=== PATIENT | female | born 1945 | race Two or more races ===

== ENCOUNTER 2016-11-11 22:13 | Emergency (ER) | payer MEDICARE ==
[~2016-11-11] VITALS: Ht 152.4 cm; Wt 54.4 kg
[~2016-11-11 22:13] MED LIST: ATARAX PO; BENADRILINA25 MG PO; HYDROXYZINE HCL25 M1 PO; KEFLEX500 MG PO; LEVOTHYROXINE50 MCG PO; LIPITOR20 MG PO; PEPCID AC20 MG PO; PREDNISONE10 MG PO; PREVACID30 MG/BOTT PO; VITAL-D RX TABL1 TAB PO
[2016-11-11 23:58] LABS: BASOPHIL% 0.3 % (0-2.5); EOSINOPHIL# 0.1 X10e3 (0-0.7); EOSINOPHIL% 2.1 % (0.0-7.0); HEMATOCRIT 40.3 % (35.0-45.0); HEMOGLOBIN 13.8 gm/dL (12.0-16.0); LYMPHOCYTE# 0.8 X10e3 (1.0-3.5); LYMPHOCYTE% 15.4 % (17.0-45.0); MEAN CELL VOLUME 95.2 FL (83-96); MEAN CORPUSCULAR HEMOGLOBIN 32.6 PG (28-34); MEAN CORPUSCULAR HGB CONC 34.3 g/dL (30-36); MEAN PLATELET VOLUME 7.8 FL (6.5-11.5); MONOCYTE# 0.5 X10e3 (0-1.0); MONOCYTE% 9.5 % (3.0-12.0); NEUTROPHIL# 3.7 X10e3 (1.5-7.1); NEUTROPHIL% 72.7 % (40-75); PLATELET COUNT 108 X10e3 (140-420); RED BLOOD COUNT 4.24 X10e (3.90-5.30); RED CELL DISTRIBUTION WIDTH 13.7 % (11.0-15.5); WHITE BLOOD COUNT 5.1 X10e3 (4.0-10.5)
[2016-11-12 00:01] LABS: DIFF IND NO
[2016-11-12 00:18] LABS: ALBUMIN SERUM 4.1 g/dL (3.5-5.0); BILIRUBIN, DIRECT 0.2 mg/dL (0.0-0.2); BILIRUBIN,INDIRECT 0.9 mg/dL (0.0-0.9); BILIRUBIN,TOTAL 1.1 mg/dL (0.2-2.0); CREATININE SERUM 0.6 mg/dL (0.6-1.4); GLOM FILT RATE Estimated 90.4 mL/min (>60); POTASSIUM 3.5 mmol/L (3.5-5.1); PROTEIN TOTAL SERUM 7.7 g/dL (6.0-8.3)
[2016-11-12 00:20] LABS: URINE SOURCE CLEAN CATCH
[2016-11-12 00:34] LABS: URINE APPEARANCE CLEAR; URINE BILIRUBIN NEG (NEG); URINE BLOOD NEG (NEG); URINE COLOR YELLOW; URINE GLUCOSE NEG (NEG); URINE KETONE NEG (NEG); URINE LEUKOCYTE ESTERASE 1+ (NEG); URINE NITRATE NEG (NEG); URINE PROTEIN NEG (NEG); URINE SPECIFIC GRAVITY 1.016 (1.003-1.035); URINE UROBILINOGEN 0.2 MG/DL (NEG)
[2016-11-12 00:37] LABS: CULTURE INDICATED? YES; URINE BACTERIA AUWI NEG (NEGATIVE); URINE SQUAMOUS EPITHELIAL CELL OCC /[HPF]
== END 2016-11-12 02:15 | disposition home or self-care (01) ==
LOC: CED 22:13
PROVIDERS: Emergency Medicine
DX: E03.9 Hypothyroidism, unspecified (principal); R53.83 Other fatigue; R53.1 Weakness; N39.0 Urinary tract infection, site not specified; F41.9 Anxiety disorder, unspecified; Z79.899 Other long term (current) drug therapy
CPT/HCPCS: 36415; 80048; 80076; 81003; 84443; 85025; 87086; 96360; 99284

== ENCOUNTER 2016-11-19 18:16 | Inpatient (IN) | payer MEDICARE ==
[~2016-11-19] VITALS: Ht 154.9 cm; Wt 57.7 kg
--- NOTE | ~2016-11-19 | CT2 ---
[facility] A Service of [facility] RADIOLOGY TEXT RESULTS PATIENT: ADRIA ANDERS LOCATION: [facility] 55- : 43 UNIT #: [id number] AGE: [address]: Lillian Sosa MD SEX: F ORDER DR: [id number] [facility] [address] [place], [place] [address] [id number] I MR#: [id number] Acc #: [id number] NAME: ADRIA ANDERS : 1945 SEX: F STUDY DATE/TIME: 11/19/2016 22:10 UNIT: [facility] ROOM: [facility] STUDY DESCRIPTION: CT Abd and Pelv W Cont Attending Physician: Arias Bhatti M.D. Ordering Physician: Medhat Cardona M.D. Primary Care Physician: Kristian Stephens M.D. MEDICAL IMAGING REPORT This report is preliminary unless electronic signature is present EXAM CT abdomen and pelvis 11/19/2016. HISTORY Pain. Vomiting, fall today, chills, dizzy patient does not want to talk. Fever 100 abdomen pain today. TECHNIQUE This CT exam was performed with one or more of the following radiation dose reduction techniques: automatic control, adjustment of mA and/or kV according to patient size, and iterative reconstruction. FINDINGS CT abdomen and pelvis performed with intravenous administration 100 mL Isovue-370. Enteric contrast not administered. Study limited in the absence of enteric contrast. Prior comparison study is a multiphase contrast-enhanced CT of the abdomen, not including pelvis, dated 03/25/2009. The lung bases show patchy and band-like densities bilateral lung bases probably predominately atelectatic in nature. Components of basilar pneumonia not excluded. On the first image. There is an ill-defined nodular density measuring 1.1 cm in diameter in the right lower lobe. The prior examination images did not include this area. This is nonspecific and could be an area of airspace disease or pulmonary nodule. Consider further assessment with elective CT of chest when clinically appropriate for the patient. An approximately 6 mm nodular density at the left lung base near the diaphragm in the lower lobe is unchanged from 2010 and therefore felt to be benign in nature. There is a bronchial wall thickening at the bilateral lung bases new compared to prior study and probably reflecting some degree of bronchitis. Both acute and chronic components could be present. The heart is upper limits of normal in size. The liver has a somewhat nodular contour suggesting underlying cirrhosis. There is relatively decreased size of the right hepatic lobe. There is a small cyst in segment 4 of the liver which is STS. [facility] A Service of [facility] RADIOLOGY TEXT RESULTS PATIENT: ADRIA ANDERS LOCATION: [place] [address] : 43 UNIT #: [id number] AGE: [address]: Lillian Sosa MD SEX: F ORDER DR: more pronounced than on prior examination. There is no clearly suspicious pulmonary parenchymal abnormality. Status post cholecystectomy. No biliary obstruction. The spleen is borderline enlarged at 13.2 cm in maximum diameter. Pancreas, adrenal glands unremarkable. There is mild bilateral pyelocaliectasis which is unchanged from 2010 and felt to be the normal physiologic state for this patient. No obstructing process is seen. No calculi. No perinephric inflammatory change. CT PELVIS: No inguinal adenopathy. Moderate urinary bladder distension. Bladder measures up to 11.2 cm in craniocaudal extent. Probably physiologic. Correlate with any clinical signs or symptoms of urinary retention. The uterus and adnexal regions are normal in appearance. There may be a minimal trace amount of free fluid in the pelvis. Certainly no drainable fluid collection. There is no pelvic or retroperitoneal adenopathy. The distal esophagus, stomach, small bowel unremarkable. I believe the patient retains normal appendix. Colon unremarkable. The aorta is normal in caliber. Scattered atherosclerotic arterial calcifications. Bony structures show degenerative changes in the spine. There is a left L5 pars interarticularis defect. Minimal grade 1 anterolisthesis L5 on S1. Posterior disc bulge L5-S1. Mild central spinal canal narrowing. Narrowing of the bilateral lateral recesses. Narrowing of the bilateral neural foramina. Posterior disc protrusion L4-L5. Marked central spinal canal narrowing. Marked mass effect on bilateral lateral recesses. Narrowing of the bilateral neural foramina. Less pronounced degenerative changes elsewhere. IMPRESSION 1. Patchy and linear/band-like densities at the bilateral lung bases probably predominately atelectatic in nature. Small areas of pneumonitis could be considered in the appropriate clinical context. On the first image of the examination there is a 1.1 cm ill-defined incompletely visualized nodular density at the inferior right lung. It is unclear if this is volume averaging through a normal vascular structure, an area of airspace disease, or a true pulmonary nodule. Best further evaluated with elective CT of the chest when clinically appropriate for the patient. 2. Stable 6 mm noncalcified pulmonary nodule right lung base unchanged from 2010 and therefore felt to be benign in nature. 3. Stable mild cardiac enlargement. 4. Cirrhotic morphology of liver more pronounced than in 2010. No suspicious hepatic parenchymal finding. 5. Status post cholecystectomy. 6. Borderline splenic enlargement. 7. Stable mild bilateral pyelocaliectasis. No change from 2010. No acute renal findings. 8. Mild bladder distension likely physiologic. Correlate clinically. 9. There may be a minimal trace free fluid in deep pelvis. Certainly there is no drainable fluid collection. This is probably physiologic in nature. [facility] A Service of [facility] RADIOLOGY TEXT RESULTS PATIENT: ADRIA ANDERS LOCATION: [facility] 551- : 43 UNIT #: [id number] AGE: [address]: Lillian Sosa MD SEX: F ORDER DR: 10. No acute-appearing abnormality along the alimentary canal. Patient retains normal appendix. 11. Degenerative changes in the spine. See discussion above. Most pronounced at L4-L5 where there is a prominent posterior disc protrusion resulting in marked spinal canal narrowing and narrowing of the bilateral lateral recesses. Chronicity unclear though I would favor chronic time course. Spinal canal and neural foraminal contents could best be further evaluated if clinically warranted with elective MRI if the patient is a candidate. Dictated by... Cordell Soriano M.D. THIS IS AN ELECTRONICALLY VERIFIED REPORT Cordell Soriano M.D. at 11/22/2016 5:05 PM GEORGE/venus TD: 11/20/2016 21:58 JOB #: [id number] MEDICAL IMAGING REPORT Page 1 of 1 COPY
--- NOTE | ~2016-11-19 | CO ---
Unit #: [id number] #: [id number] Patient: ADRIA ANDERS [id number] [address] [place], [place] [address] [id number] I MR#: [id number] NAME: ADRIA ANDERS ROOM: 220 Age: 71 Sex: F Admission Date: 11/20/2016 : 1945 Attending Physician: Lillian Sosa M.D. Primary Care Physician: Kristian Stephens M.D. Consultation Date: 11/24/2016 CONSULTATION REPORT REASON FOR EVAL Left lobe liver lesion, please evaluate. HISTORY OF PRESENT ILLNESS 71-year-old lady who came with nonspecific cough and dizziness and shortness of breath. Has a long history of hepatitis C cirrhosis and hepatitis C is treated and now CT scan showed a left sided lesion. MRI proved that it was most probably hepatocellular carcinoma. We were requested to evaluate. Today the son, who speaks very good Yi, is in the room with her and when I asked, he states that he was very happy to translate for her and she did not need any translators and that they were not very good at all. PAST HISTORY 1. Hypothyroidism. 2. Hyperlipidemia. 3. Hepatitis C. FAMILY HISTORY Negative for heart disease or liver disease or liver cancers. SOCIAL HISTORY Patient is originally from [place]. Lives with the daughter. She is a nonsmoker, no alcohol usage, retired. Has a very supportive son in the room. ALLERGIES No known allergies. CHRONIC MEDICATIONS 1. Levothyroxine. 2. Meloxicam. 3. Lipitor. 4. Vitamin D. 5. Hydralazine. REVIEW OF SYSTEMS Review of systems was limited but she has no other problems according to the review. Only mild dizziness, periodic cough, abdominal discomfort. Otherwise, review was unremarkable and was limited. PHYSICAL EXAMINATION No jaundice, no palpable nodes. LUNGS: Clear. Unit #: [id number] #: [id number] Patient: ADRIA ANDERS CARDIOVASCULAR: Distant S1, S2. ABDOMEN: Liver is not palpable. There is diffuse tenderness. No rebound, no rigidity. LEAF BLENDER: Grossly intact. PELVIC/BREAST EXAM: Not performed. DIAGNOSTIC STUDIES LABORATORY: Chemistries - glucose 101, BUN 9, creatinine 0.5, sodium 138, potassium 4, chloride 102, CO2 27, calcium 8.9, magnesium 2.1, AST of 60, bilirubin total 0.6, ALT 43, alk. phos. 46. Protime 10.9, INR of 1. Hemoglobin 14, hematocrit 40, white count 3100, platelet 112,000. MCV of 95. IMAGING: MRCP was brought up, reviewed, results discussed. 1) Cirrhosis of the liver; 2) 2.2 cm hypervascular mass lateral segment left hepatic lobe consistent with hepatocellular carcinoma. So, at this point, I had a long discussion with the patient and the son regarding need for biopsy of this lesion and from the MRI that I am reviewing there is no need to biopsy this mass. She has underlying cirrhosis and it is classic hepatocellular carcinoma so at this point I am going to cancel the liver biopsy and schedule the patient to see us in the office from where we will refer her to the liver surgeons for resection of the left lobe of the liver. As her LFTs are reasonable, protime is normal, I think she can easily tolerate left hepatectomy, then followup. In the meantime, AFB has been drawn, result is pending. Dictated by... Yaron Luna M.D. АННА/heike TD: 11/24/2016 13:16 JOB #: [id number] CONSULTATION REPORT Page 1 of 1 X Yaron Luna MD X CONSULTATION REPORT
--- NOTE | ~2016-11-19 | EKG ---
PATIENT: CHAGO ADRIA UNIT #: [id number] Ventricular Rate: 75 BPM Atrial Rate: 75 BPM P-R Interval: 128 ms QRS Duration: 94 ms Q-T Interval: 418 ms QTC Calculation(Bezet): 466 ms P Milton: 24 degrees Calculated R Milton: 39 degrees Calculated T Milton: 48 degrees Diagnosis Line: Normal sinus rhythm Diagnosis Line: Incomplete right bundle branch block Diagnosis Line: Otherwise normal ECG Diagnosis Line: When compared with ECG of 04-MAR-2016 20:08, Diagnosis Line: No significant change was found Diagnosis Line: Confirmed by JOS SAUCEDO MD ([id number]) on 11/21/2016 Diagnosis Line: 11:02:53 PM INTERPRETING MD: SHERYL HOLLAND
--- NOTE | ~2016-11-19 | CR72 ---
[facility] A Service of [facility] RADIOLOGY TEXT RESULTS PATIENT: ADRIA ANDERS LOCATION: [place] [address] : 43 UNIT #: [id number] AGE: [address]: Arias Bhatti MD SEX: F ORDER DR: [id number] [facility] [address] [place], [place] [address] [id number] I MR#: [id number] Acc #: [id number] NAME: ADRIA ANDERS : 1945 SEX: F STUDY DATE/TIME: 11/19/2016 23:38 UNIT: [facility] ROOM: [facility] STUDY DESCRIPTION: CR Chest Single View Portable Attending Physician: Arias Bhatti M.D. Ordering Physician: Medhat Cardona M.D. Primary Care Physician: Kristian Stephens M.D. MEDICAL IMAGING REPORT This report is preliminary unless electronic signature is present EXAM Portable chest, 11/19/2016, at 23:38. INDICATIONS Shortness of air, weakness and cough that worsened today. Symptoms for 1 week. FINDINGS AP portable chest compared with 03/04/2016. Lung volumes are low. Granulomatous calcifications are present. The lungs are otherwise clear. Cardiac and mediastinal contours are normal. There is no pneumothorax. IMPRESSION No active disease. Dictated by... Sachin Houston Jr., M.D. THIS IS AN ELECTRONICALLY VERIFIED REPORT Sachin Houston Jr., M.D. at 11/21/2016 4:14 AM WILL/cheryl TD: 11/20/2016 22:53 JOB #: [id number] MEDICAL IMAGING REPORT Page 1 of 1 COPY
--- NOTE | ~2016-11-19 | DS ---
Unit #: [id number] #: [id number] Patient: ADRIA ANDERS [id number] [address] [address] [id number] I MR#: [id number] NAME: ADRIA ANDERS ROOM: 220 Age: 71 Sex: F Admission Date: 11/20/2016 : 1945 Discharge Date: 11/24/2016 Attending Physician: Lillian Sosa M.D. Primary Care Physician: Kristian Stephens M.D. DISCHARGE SUMMARY PRINCIPAL DIAGNOSES 1. Septic shock secondary to multifocal community acquired pneumonia. 2. Newly diagnosed hepatocellular carcinoma of the left lobe of the liver. 3. 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 4. Chronic thrombocytopenia secondary to cirrhosis. 5. Cirrhosis secondary to hepatitis C, reportedly stage 3. 6. Hepatitis C, status post treatment x2 with continued low grade infection per family. 7. Hypothyroidism, uncontrolled. 8. Hyperlipidemia. 9. Hypovolemic hyponatremia. CONSULTANTS Dr. Luna - oncology PROCEDURES 1. CT scan of the abdomen and pelvis with contrast on November 19, 2016, with small areas of pneumonitis in the bases of the lungs bilaterally, a 1.1 cm ill-defined nodule in the inferior right lung 6 mm noncalcified pulmonary right lung nodule unchanged from 2010, stable cardiac enlargement, cirrhotic morphology of liver noted, borderline splenic enlargement noted, bilateral pyelocaliectasis. 2. Chest x-ray on November 19, 2016, was no acute findings. 3. CT of the chest, without contrast on November 21, 2016, again with linear air space opacities in both lung bases consistent with pneumonia and/or atelectasis, changes in chronic obstructive pulmonary disease noted, cirrhotic liver morphology noted, 1.9 cm mass in the lateral segment of the left hepatic lobe. 4. MRCP with and without contrast, on November 23, 2016, with cirrhosis of the liver, there is a 2.2 cm hypervascular mass in the lateral segment of the left hepatic lobe consistent with hepatocellular carcinoma, patent hepatic vasculature noted, cyst in the pancreatic tail measuring 0.7 cm. CLINICAL HISTORY AND HOSPITAL COURSE Ms. Anders is a very nice 71-year-old Andorran female, non-Honduran speaking, who presents to the emergency department with having cough at home, dizziness, and just not feeling well. In the emergency department, she was found to have an elevated white blood cell count of 12.2, she was also found to be hyponatremic with a sodium of 126. She had a CT scan of the abdomen and pelvis done which revealed known cirrhosis in addition to questionable atelectasis vs pneumonia in the left Unit #: [id number] #: [id number] Patient: DARRYL,ADRIA lower lobe. The patient was subsequently admitted. The patient was started on sepsis protocol and empiric antibiotics in regards to her pneumonia. She was maintained on empiric antibiotics and her leukocytosis resolved. She remained afebrile throughout her hospitalization. Positive organism was not identified. She will be transitioned to oral Omnicef which she will complete as an outpatient. She had no associated hypoxia. Also, she had sepsis and has resolved. The patient underwent a CT scan of the abdomen and pelvis, revealing again cirrhosis of the liver, but also a liver mass. The patient, subsequently, underwent MRCP and has findings consistent with hepatocellular carcinoma. The patient does have a long history of hepatitis C which has undergone treatment on two separate occasions but according to family, it is still not completely cleared. The patient was seen in consultation by Dr. Luna, who at this point, did not feel biopsy was necessary. He is going to see Ms. Anders as an outpatient and make referral for resection of the underlying malignancy. An AFP was done and was only mildly elevated at 6.4. I will also have the patient follow up with Dr. Jason Saunders as an outpatient. All of this has been discussed with the patient and her son via historic interpreter and she expressed understanding. Plan is to discharge home later today. I also note that the patient's TSH is significantly elevated at 20 with a low free T3. I am going to increase her dose of levothyroxine and she will require followup TSH in approximately six weeks. DISCHARGE CONDITION Stable. DISCHARGE STATUS Discharged to home. DISCHARGE MEDICATIONS 1. Omnicef 300 mg p.o. b.i.d. for another four days 2. Levothyroxine 125 mcg p.o. daily with one refill given 3. Hydroxyzine 25 mg p.o. daily p.r.n. for anxiety 4. Lipitor 20 mg at bedtime 5. Mobic 7.5 mg daily 6. Vitamin D 2000 units p.o. family DISCHARGE INSTRUCTIONS The patient is instructed to follow a regular diet, she can increase her activity as tolerated. FOLLOWUP The patient will follow up with Dr. Luna next week and again will make outpatient referral to surgery for resection of her hepatocellular carcinoma. The patient can follow up with Dr. Freeman in approximately three weeks and she should follow up with Dr. Jason Saunders after surgery. Time spent on discharge today is forty-seven minutes. Dictated by... Unit #: [id number] #: [id number] Patient: ADRIA ANDERS M.D. KEH/darryl TD: 11/26/2016 08:49 JOB #: [id number] CC: Dr. Jason Luna M.D. DISCHARGE SUMMARY Page 1 of 1 X Lillian Sosa MD X DISCHARGE SUMMARY
--- NOTE | ~2016-11-19 | CT57 ---
[facility] A Service of [facility] RADIOLOGY TEXT RESULTS PATIENT: ADRIA ANDERS LOCATION: [place] [address] : 43 UNIT #: [id number] AGE: [address]: Lillian Sosa MD SEX: F ORDER DR: [id number] [place] [id number] [facility] [place], [place] [address] [id number] I MR#: [id number] Acc #: [id number] NAME: ADIRA ANDERS : 1945 SEX: F STUDY DATE/TIME: 11/21/2016 11:40 UNIT: [facility] ROOM: [facility] STUDY DESCRIPTION: CT Chest Wo Cont Attending Physician: Lillian Sosa M.D. Ordering Physician: Arias Bhatti M.D. Primary Care Physician: Kristian Stephens M.D. MEDICAL IMAGING REPORT This report is preliminary unless electronic signature is present EXAM CT chest without contrast. INDICATIONS Pneumonia. Right lower lobe airspace opacity. Shortness of breath for 1 week. Fever and cough. TECHNIQUE CT of the chest without contrast. Coronal and sagittal reconstructions were obtained. This CT exam was performed with one or more of the following radiation dose reduction techniques: automatic exposure control, adjustment of mA and/or kV according to patient size, and iterative reconstruction. COMPARISON Chest radiograph 11/19/2016. FINDINGS There is predominately linear airspace opacity in the dependent portions of both lungs at the costophrenic angles. This is most typical for atelectasis; correlate for any evidence of pneumonia. There is some mild background COPD. No pericardial or pleural effusion. Thoracic aorta is normal in caliber. No enlarged mediastinal or hilar lymph nodes. The liver is cirrhotic. There is a mass in the left hepatic lobe, measuring at least 1.9 cm. This mass is more apparent on the noncontrasted study than on the CT performed yesterday. Given the cirrhosis, this is concerning for possible hepatocellular carcinoma. Dedicated liver protocol CT is recommended. No acute osseous abnormalities. IMPRESSION [facility] A Service of [facility] RADIOLOGY TEXT RESULTS PATIENT: ADRIA ANDERS LOCATION: [place] [address] : 43 UNIT #: [id number] AGE: [address]: Lillian Sosa MD SEX: F ORDER DR: 1. Linear airspace opacities in both lung bases with associated volume loss. This has an appearance most typical for atelectasis; correlate for any evidence of pneumonia. 2. COPD. 3. Cirrhotic liver. 4. 1.9-cm mass in the lateral segment, left hepatic lobe. This is more apparent on the CT than on the study from yesterday. I do believe it is real and probably represents an area of hepatocellular carcinoma. Dedicated liver protocol MRI is recommended to further evaluate. Dictated by... Alex Moore M.D. THIS IS AN ELECTRONICALLY VERIFIED REPORT Alex Moore M.D. at 11/22/2016 11:48 AM HOWARD/marion TD: 11/22/2016 11:28 JOB #: [id number] MEDICAL IMAGING REPORT Page 1 of 1 COPY
--- NOTE | ~2016-11-19 | HP ---
Unit #: [id number] #: [id number] Patient: ADRIA ANDERS [id number] [address] [address] [id number] I MR#: [id number] NAME: ADRIA ANDERS ROOM: 551 Age: 71 Sex: F Admission Date: 11/19/2016 : 1945 Attending Physician: Arias Bahtti M.D. Primary Care Physician: Kristian Stephens M.D. HISTORY AND PHYSICAL CHIEF COMPLAINT Fever, (1) , dizziness, cough. DISCUSSION This is a 71-year-old female who speaks Trinidadian and her son is available at bedside who speaks good Armenian. Most of information obtained through him. She has a history of hepatitis C, GERD, hypothyroid, hyperlipidemia. She presented to emergency room today with chief complaint of not feeling very well, fall at home, dizzy, chills, fever, vomited one time, also been having cough with yellowish phlegm. These symptoms got progressively worse for a few days. She had workup in the ER. She was found to be CBC-white count 12.2. Sodium 126. She underwent CT scan, abdomen, which was unremarkable except cirrhotic morphology of liver, 6 mm pulmonary nodule but it was concern for the bilateral dizziness, pneumonitis and eventually being admitted. PAST MEDICAL HISTORY 1. History of treated hepatitis C. 2. Hypothyroid. 3. Hyperlipidemia. 4. GERD. PAST SURGICAL HISTORY Cholecystectomy. SOCIAL HISTORY The patient is originally from [place]. She lives with her daughter. She is lifelong nonsmoker. She does not drink alcohol. FAMILY HISTORY Negative for heart disease. Negative for lung cancer. ALLERGIES No known drug allergy. MEDICATION FROM HOME 1. Meloxicam 7.5 mg daily. 2. Lipitor 20 mg daily. 3. Levothyroxine 75 mcg daily. 4. Vitamin D 2,000 units daily. 5. Hydralazine 25 mg daily p.r.n. REVIEW OF SYSTEMS Negative except history of present illness. Unit #: [id number] #: [id number] Patient: ADRIA ANDERS PHYSICAL EXAMINATION GENERAL APPEARANCE: 71-year-old female lying in the bed comfortably, currently, not in any distress. She is alert, awake, oriented x3, comfortable, not in any distress. VITAL SIGNS: Temperature 100. Heart rate 81. Respiratory rate 18. Blood pressure 116/65. Oxygen 96% on room air. HEENT: Pupils equal and reactive to light and accommodation. Head is normocephalic, atraumatic. NECK: Supple. No JVD. HEART: S1, S2. Regular rate and rhythm. LUNGS: Poor entry bilateral with no rhonchi. No wheezing. ABDOMEN: Soft, nontender, nondistended. Bowel sounds positive. EXTREMITIES: Inspection normal. No cyanosis. No clubbing. No edema. NEUROLOGIC: Alert, oriented x3. Cranial nerves intact. Power 5/5 on both sides. DIAGNOSTIC STUDIES LABORATORY: Lactic acid level is 2.1. UA is negative. Glucose 124. Troponin less than 0.05. White count 12.2, hemoglobin 14, hematocrit 41, platelets 103. Sodium 126, potassium 3.5, glucose 140, BUN (2) , creatinine 0.9. LFTs within normal limits. IMAGING: CT abdomen shows cirrhotic morphology of liver, 6 mm pulmonary nodule, bilateral basilar atelectasis, also concerning for pneumonitis. ASSESSMENT AND PLAN 1. Fever. 2. Pneumonitis. 3. Hyponatremia. 4. Thrombocytopenia. 5. Leukopenia. 6. Hypothyroid. 7. Gastroesophageal reflux disease. 8. Dyslipidemia. 9. 6 mm pulmonary nodule. 10. Deep venous thrombosis prophylaxis. We will place the patient on SCDs. PLAN We will admit to the hospital. We will get sputum for culture and sensitivity, start on IV Rocephin, Zithromax. Zofran p.r.n. for nausea. Dictated by Ramo Meadows TD: 11/20/2016 13:30 JOB #: [id number] Unit #: [id number] #: [id number] Patient: ADRIA ANDERS HISTORY AND PHYSICAL Page 1 of 1 X X HISTORY AND PHYSICAL
--- NOTE | ~2016-11-19 | MR145 ---
[facility] A Service of [facility] & [facility] RADIOLOGY TEXT RESULTS PATIENT: ADRIA ANDERS LOCATION: C2A - : 43 UNIT #: [id number] AGE: [address]: Lillian Sosa MD SEX: F ORDER DR: [id number] [facility]. [place], [place] [address] [id number] MR#: [id number] #: [id number] NAME: ADRIA ANDERS : 1945 SEX: F STUDY DATE/TIME: 11/23/2016 11:07 UNIT: C2A ROOM: 220 STUDY DESCRIPTION: MR MRCP WWo Contrast Attending Physician: Lillian Sosa M.D. Ordering Physician: Lillian Sosa M.D. Primary Care Physician: Kristian Stephens M.D. [facility] REPORT This report is preliminary unless electronic signature is present. EXAM MR abdomen INDICATIONS Hepatitis. Left hepatic mass. Abnormal CT scan. TECHNIQUE Multiplanar MRI of the abdomen with and without contrast (12 mL MultiHance IV contrast). Thin and thick slab MRCP sequences were obtained. COMPARISON CT chest 11/21/[address] abdomen 98 20:17. FINDINGS The liver is morphologically cirrhotic. There is a benign cyst in the medial left hepatic lobe. There is a hypervascular mass in the lateral segment, left hepatic lobe measuring 2.2 x 1.4 x 1.4 cm. The mass has hyperintense signal on the T2-weighted sequences, hypointense on the T1-weighted sequences. Following administration of contrast there is early avid material enhancement which washes out on the delayed images. There is a peripheral rim of enhancement around the mass. This is consistent with a hepatocellular carcinoma. The hepatic vasculature is patent. No intrahepatic or extrahepatic biliary dilatation. The gallbladder is surgically absent. There is a small cyst in the pancreatic tail measuring 0.7 cm. There is no enhancement of this mass. It is most consistent with a pancreatic pseudocyst or a benign cystic pancreatic neoplasm. The spleen is normal in size. The adrenal glands and kidneys are within normal limits. [facility] A Service of [facility] & [facility] RADIOLOGY TEXT RESULTS PATIENT: ADRIA ANDERS LOCATION: [facility] 220-01 : 43 UNIT #: [id number] AGE: [address]: Lillian Sosa MD SEX: F ORDER DR: The bowel is not dilated. No enlarged retroperitoneal or mesenteric lymph nodes. No abnormal bone marrow signal. IMPRESSION 1. Cirrhosis of the liver. 2. 2.2 cm hypervascular mass in the lateral segment, left hepatic lobe (segment 2). This is consistent with a hepatocellular carcinoma. 3. Patent hepatic vasculature. 4. Small presumed cyst in the pancreatic tail measuring 0.7 cm. No aggressive or malignant features are identified. Dictated by... Alex Moore M.D. THIS IS AN ELECTRONICALLY VERIFIED REPORT Alex Moore M.D. at 11/25/2016 9:47 AM HOWARD/venus TD: 11/23/2016 22:28 JOB #: [id number] MRI [facility]ENTER REPORT Page 1 of 1 COPY
[2016-11-19 20:09] LABS: BASOPHIL% 0.6 % (0-2.5); EOSINOPHIL% 0.1 % (0.0-7.0); HEMOGLOBIN 14.1 gm/dL (12.0-16.0); LYMPHOCYTE# 0.3 X10e3 (1.0-3.5); LYMPHOCYTE% 14.7 % (17.0-45.0); MEAN CELL VOLUME 95.3 FL (83-96); MEAN CORPUSCULAR HEMOGLOBIN 32.8 PG (28-34); MEAN CORPUSCULAR HGB CONC 34.4 g/dL (30-36); MEAN PLATELET VOLUME 7.8 FL (6.5-11.5); MONOCYTE# 0.4 X10e3 (0-1.0); MONOCYTE% 16.4 % (3.0-12.0); NEUTROPHIL# 1.5 X10e3 (1.5-7.1); NEUTROPHIL% 68.2 % (40-75); PLATELET COUNT 103 X10e3 (140-420); RED CELL DISTRIBUTION WIDTH 13.8 % (11.0-15.5); WHITE BLOOD COUNT 2.2 X10e3 (4.0-10.5)
[2016-11-19 20:10] LABS: DIFF IND YES
[2016-11-19 20:18] LABS: ALBUMIN SERUM 4.1 g/dL (3.5-5.0); BILIRUBIN, DIRECT 0.2 mg/dL (0.0-0.2); BILIRUBIN,INDIRECT 0.4 mg/dL (0.0-0.9); BILIRUBIN,TOTAL 0.6 mg/dL (0.2-2.0); BUN/CREATININE RATIO 13.33; CALCIUM SERUM 8.2 mg/dL (8.4-10.2); CREATININE SERUM 0.9 mg/dL (0.6-1.4); GLOM FILT RATE Estimated 63.5 mL/min (>60); POTASSIUM 3.5 mmol/L (3.5-5.1); PROTEIN TOTAL SERUM 7.9 g/dL (6.0-8.3)
[2016-11-19 20:38] LABS: PLATELET ESTIMATE NORMAL (NORMAL); RBC NORMAL YES
[2016-11-19 21:10] LABS: POC - CKMB 1.5 ng/mL (0.0-7.9); POC - TROPONIN <0.05 ng/mL (<=0.05)
[2016-11-19 21:13] LABS: URINE SOURCE CLEAN CATCH
[2016-11-19 21:18] LABS: URINE APPEARANCE CLEAR; URINE BILIRUBIN NEG (NEG); URINE BLOOD TRACE (NEG); URINE COLOR YELLOW; URINE GLUCOSE NEG (NEG); URINE KETONE NEG (NEG); URINE LEUKOCYTE ESTERASE NEG (NEG); URINE NITRATE NEG (NEG); URINE PROTEIN NEG (NEG); URINE SPECIFIC GRAVITY 1.015 (1.003-1.035)
[2016-11-19 21:20] LABS: URINE BACTERIA AUWI NEG (NEGATIVE); URINE SQUAMOUS EPITHELIAL CELL NONE SEEN /[HPF]; UWBCS1 AUWI 0-2 (0-5)
[2016-11-19 21:23] LABS: CULTURE INDICATED? NO
[2016-11-19] MEDS ORDERED: MELOXICAM7.5 MG PO (23:30)
[2016-11-19] MEDS ORDERED: LIPITOR20 MG PO (23:31)
[2016-11-19] MEDS ORDERED: LEVOTHYROXINE75 MC1 PO (23:32)
[2016-11-19] MEDS ORDERED: VITAMIN D 22000 UNIT PO (23:33)
[2016-11-19] MEDS ORDERED: HYDROXYZINE PAM25 M1 PO (23:35)
[2016-11-19 23:59] LABS: POC - CKMB 1.3 ng/mL (0.0-7.9); POC - TROPONIN <0.05 ng/mL (<=0.05)
[2016-11-20 06:04] LABS: BUN/CREATININE RATIO 11.25; CALCIUM SERUM 6.7 mg/dL (8.4-10.2); CREATININE SERUM 0.8 mg/dL (0.6-1.4); GLOM FILT RATE Estimated 73.2 mL/min (>60); POTASSIUM 3.5 mmol/L (3.5-5.1)
[2016-11-20 06:37] LABS: BASOPHIL% 0.5 % (0-2.5); DIFF IND YES; EOSINOPHIL% 0.9 % (0.0-7.0); HEMATOCRIT 35.8 % (35.0-45.0); HEMOGLOBIN 11.8 gm/dL (12.0-16.0); LYMPHOCYTE# 0.6 X10e3 (1.0-3.5); LYMPHOCYTE% 41.5 % (17.0-45.0); MEAN CELL VOLUME 98.8 FL (83-96); MEAN CORPUSCULAR HEMOGLOBIN 32.6 PG (28-34); MEAN PLATELET VOLUME 7.6 FL (6.5-11.5); MONOCYTE# 0.3 X10e3 (0-1.0); MONOCYTE% 23.4 % (3.0-12.0); NEUTROPHIL# 0.5 X10e3 (1.5-7.1); NEUTROPHIL% 33.7 % (40-75); PLATELET COUNT 76 X10e3 (140-420); RED BLOOD COUNT 3.62 X10e (3.90-5.30); RED CELL DISTRIBUTION WIDTH 13.8 % (11.0-15.5); WHITE BLOOD COUNT 1.4 X10e3 (4.0-10.5)
[2016-11-20 06:47] LABS: PLATELET ESTIMATE DECREASED (NORMAL)
[2016-11-20 06:48] LABS: ANISOCYTOSIS SL
[2016-11-21 05:48] LABS: HEMATOCRIT 36.9 % (35.0-45.0); HEMOGLOBIN 12.7 gm/dL (12.0-16.0); MEAN CORPUSCULAR HEMOGLOBIN 32.8 PG (28-34); MEAN CORPUSCULAR HGB CONC 34.5 g/dL (30-36); MEAN PLATELET VOLUME 8.1 FL (6.5-11.5); RED BLOOD COUNT 3.88 X10e (3.90-5.30); RED CELL DISTRIBUTION WIDTH 14.3 % (11.0-15.5); WHITE BLOOD COUNT 1.7 X10e3 (4.0-10.5)
[2016-11-21 06:24] LABS: MEAN CELL VOLUME 95.1 FL (83-96)
[2016-11-21 06:30] LABS: BUN/CREATININE RATIO 11.42; CALCIUM SERUM 8.1 mg/dL (8.4-10.2); CREATININE SERUM 0.7 mg/dL (0.6-1.4); POTASSIUM 3.8 mmol/L (3.5-5.1)
[2016-11-22 16:48] LABS: HEMATOCRIT 39.4 % (35.0-45.0); HEMOGLOBIN 13.7 gm/dL (12.0-16.0); MEAN CELL VOLUME 95.3 FL (83-96); MEAN CORPUSCULAR HGB CONC 34.6 g/dL (30-36); MEAN PLATELET VOLUME 7.6 FL (6.5-11.5); RED BLOOD COUNT 4.14 X10e (3.90-5.30); RED CELL DISTRIBUTION WIDTH 13.9 % (11.0-15.5); WHITE BLOOD COUNT 2.2 X10e3 (4.0-10.5)
[2016-11-22 16:53] LABS: BUN/CREATININE RATIO 17.5; CALCIUM SERUM 8.8 mg/dL (8.4-10.2); CREATININE SERUM 0.4 mg/dL (0.6-1.4); GLOM FILT RATE Estimated 103.4 mL/min (>60)
[2016-11-23 06:38] LABS: HEMATOCRIT 39.1 % (35.0-45.0); HEMOGLOBIN 13.4 gm/dL (12.0-16.0); MEAN CELL VOLUME 95.2 FL (83-96); MEAN CORPUSCULAR HEMOGLOBIN 32.7 PG (28-34); MEAN CORPUSCULAR HGB CONC 34.4 g/dL (30-36); RED BLOOD COUNT 4.1 X10e (3.90-5.30); RED CELL DISTRIBUTION WIDTH 13.9 % (11.0-15.5); WHITE BLOOD COUNT 2.6 X10e3 (4.0-10.5)
[2016-11-23 07:18] LABS: CALCIUM SERUM 8.9 mg/dL (8.4-10.2); CREATININE SERUM 0.5 mg/dL (0.6-1.4)
[2016-11-23 11:36] LABS: FREE T3 2.4 pg/mL (2.5-3.9)
[2016-11-23 11:37] LABS: FREE THYROXIN (T4) 0.86 ng/dL (0.58-1.64)
[2016-11-24 08:53] LABS: MEAN CORPUSCULAR HEMOGLOBIN 33.3 PG (28-34); MEAN PLATELET VOLUME 7.9 FL (6.5-11.5); RED BLOOD COUNT 4.21 X10e (3.90-5.30); RED CELL DISTRIBUTION WIDTH 13.8 % (11.0-15.5); WHITE BLOOD COUNT 3.1 X10e3 (4.0-10.5)
[2016-11-24 10:18] LABS: PARTIAL THROMBOPLASTIN TIME 26.6 SECONDS (23.5-31.3); PROTHROMBIN TIME (PATIENT) 10.9 SECONDS (10.0-11.7)
[2016-11-24] MEDS ORDERED: OMNICEF300 MG PO (15:48)
== END 2016-11-24 16:38 | disposition home or self-care (01) | DRG 871 ==
LOC: CED 18:16 → CEDOF 23:40 → CED 23:40 → CEDOF 23:49 → CED 23:49 → C5B 11-20 05:37 → CEDOF 11-20 05:37 → C5B 11-20 05:53 → CED 11-20 17:42 → C5B 11-20 17:42 → CEDOF 11-20 17:42 → C5B 11-22 09:07 → C2A 11-23 12:47
PROVIDERS: Emergency Medicine; Internal Medicine
DX: A41.9 Sepsis, unspecified organism (principal); R65.21 Severe sepsis with septic shock; J18.9 Pneumonia, unspecified organism; D69.6 Thrombocytopenia, unspecified; C22.0 Liver cell carcinoma; E87.1 Hypo-osmolality and hyponatremia; K74.60 Unspecified cirrhosis of liver; J98.11 Atelectasis; D72.819 Decreased white blood cell count, unspecified; E03.9 Hypothyroidism, unspecified; K21.9 Gastro-esophageal reflux disease without esophagitis; E78.5 Hyperlipidemia, unspecified; Z86.19 Personal history of other infectious and parasitic diseases; Z90.49 Acquired absence of other specified parts of digestive tract; R91.1 Solitary pulmonary nodule; B19.20 Unspecified viral hepatitis C without hepatic coma
CPT/HCPCS: 36415; 71010; 71250; 74177; 74183; 80048; 80076; 81003; 82105; 82140; 82553; 82947; 83605; 84439; 84443; 84481; 84484; 85025; 85027; 85610; 85730; 87040; 87806; 93005; 94640; 94760; 96361; 96374; 97116; 97161; 97165; 99285; A9577; G8978-GP; G8979-GP; G8987-GO; G8988-GO; G8989-GO; J0456; J0696; J2405; Q9967